=== PATIENT | male | born 1950 | race Hispanic/Latino ===

== ENCOUNTER → 2017-09-15 | Outpatient (CLI) | payer MEDICARE ==
[2017-09-15 08:37] LABS: CREATININE, SERUM 1.78 mg/dL (0.72-1.25)
== END ==
LOC: CT 07:34
DX: I70.203 Unspecified atherosclerosis of native arteries of extremities, bilateral legs (principal)
CPT/HCPCS: 36415; 82565; 84520

== ENCOUNTER → 2018-06-23 | Day surgery (SDC) | payer MEDICARE ==
[2018-06-22 12:48] LABS: BASOPHILS % 0.4 % (0.0-1.0); EOSINOPHILS # (AUTO) 0.2 (0.0-0.4); EOSINOPHILS % 2.2 % (0.0-6.0); HEMATOCRIT 38.2 % (38.2-49.6); HEMOGLOBIN 13.1 g/dL (14.0-18.0); LYMPHOCYTES # (AUTO) 1.7 (1.0-3.2); LYMPHOCYTES % 17.6 % (18.0-39.1); MEAN CORPUSCULAR HEMOGLOBIN 32.6 pg (28-32); MEAN CORPUSCULAR HGB CONC 34.3 g/dL (31-35); MONOCYTES # (AUTO) 0.8 (0.2-0.8); MONOCYTES % 8.7 % (4.4-11.3); NEUTROPHILS # (AUTO) 6.6 (2.1-6.9); NEUTROPHILS % 70.7 % (38.7-80.0); PLATELET COUNT 142 x10e3/uL (140-360); RED BLOOD COUNT 4.02 x10e6/uL (4.3-5.7); RED CELL DISTRIBUTION WIDTH 12.6 % (11.7-14.4)
[2018-06-22 13:04] LABS: PROTHROMBIN TIME 14.1 seconds (11.9-14.5)
[2018-06-22 13:16] LABS: ALBUMIN/GLOBULIN RATIO 1.1 (0.8-2.0); ANION GAP 15.3 mmol/L (8-16); CALCIUM 9.9 mg/dL (8.4-10.2); CHOL/HDL RATIO 3.2 (3.9-4.7); CREATININE, SERUM 1.51 mg/dL (0.72-1.25); POTASSIUM 4.3 mmol/L (3.5-5.1)
[~2018-06-23] VITALS: Ht 170.2 cm; Wt 86.2 kg
[2018-06-23] VITALS (10 sets, daily range): BP systolic 140–179; BP diastolic 68–89
[~2018-06-23] MED LIST: ASPIR 8181 MG PO; CHLORTHALIDONE50 MG PO; CLOPIDOGREL75 MG PO; FENTANYL CITRATE/PF 100MCG/2 ML INJ ONE; HEPARIN SOD (PORCINE) 1000 UNIT/ML 30ML ONE; HEPARIN SOD/SOD CHLORIDE 2,000 ML ONE; HYZAAR 100-251 EACH PO; IOPAMIDOL 300MG/ML 100 ML INFUS..BTL IV ONE; LIDOCAINE HCL 2% LOCAL 20 ML VIAL ONE; METOPROLOL SUCC50 MG PO; MIDAZOLAM HCL 2 MG/2 ML VIAL ONE; NITROGLYCERIN/D5W 200 MCG/ML 250 ML ONE; ONE DAILY FOR1 EAC1 PO; PANTOPRAZOLE SO40 MG PO; PRAVASTATIN SOD20 MG PO; PROTAMINE SULFATE 10 MG/ML 5 ML VIAL ONE; SERTRALINE HCL100 MG PO; SODIUM CHLORIDE 0.9% 1000ML 1,000 ML ONE; TICAGRELOR 90 MG TABLET ONE; VERAPAMIL HCL 2.5 MG/ML 2 ML VIAL ONE
--- NOTE | 2018-06-24 14:18 | Operative Report ---
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 PROCEDURES PERFORMED 1. Abdominal aortogram with bilateral lower extremity angiograms. 2. Selective catheter placement from the right femoral artery to the left superficial femoral artery. 3. Additional 3rd-order catheter placement in the right femoral artery to the left anterior tibial artery. 4. Atherectomy and drug-coated balloon angioplasty of the left anterior tibial artery. 5. Atherectomy and drug-coated balloon angioplasty of the right anterior tibial artery. 6. Deployment of right groin VASCADE closure device. COMPLICATIONS: None. RECOMMENDATIONS: Medical therapy for moderate peripheral arterial disease in the right lower extremity. Access obtained to the right femoral artery. A 6-[place] sheath was placed. Abdominal aortogram demonstrated patent renal arteries, abdominal aorta, and proximal iliac on the left, 50% stenosis. Bilateral iliac stents had mild restenosis. Femoral vessels could not be seen. The catheter was then advanced from the right femoral artery, left superficial femoral artery, moderate PAD in both femoral popliteal systems was noted, 50% stenosis in for popliteal vessels were not well seen. The catheter was then advanced from the right femoral artery to the left anterior tibial artery, proximal right anterior tibial artery, 80% tubular stenosis, origin of the right posterior tibial artery had 80% stenosis and the right posterior tibial artery had 50% stenosis. A decision was made to intervene on the right anterior and posterior tibial arteries. The patient received intravenous heparin and oral Brilinta for anticoagulation. The sheath was exchanged to a 45 cm 6-[place] sheath advanced from the right femoral artery to left superficial femoral artery. The lesion in the anterior tibial artery was crossed using a glidewire which was exchanged to a ViperWire. Orbital atherectomy using a 1.25 mm [place] was performed. Visible thrombus necessitating secondary thrombectomy was needed. Balloon angioplasty with a 4 mm [place]on[place] balloon was performed. The wire was then advanced down the left posterior tibial arteries and similar atherectomy and drug-coated balloon angioplasty was performed with excellent end result, less than 10% residual stenosis in both the anterior and posterior tibial artery with 3 vessel runoff to the left foot. Right groin repaired using VASCADE closure device. Patient discharged home same day. Job#: [id number]
== END | disposition home or self-care (01) ==
LOC: CATH LAB 12:42
PROVIDERS: ATTEND Internal Medicine Interventional Cardiology
DX: I73.9 Peripheral vascular disease, unspecified (principal); I10 Essential (primary) hypertension; Z72.0 Tobacco use; Z86.73 Personal history of transient ischemic attack (TIA), and cerebral infarction without residual deficits; Z86.2 Personal history of diseases of the blood and blood-forming organs and certain disorders involving the immune mechanism; Z82.49 Family history of ischemic heart disease and other diseases of the circulatory system
CPT/HCPCS: 36415; 37229; 37233; 75716; 80053; 80061; 85025; 85610; C1724; C1725 ×3; C1760; C1769 ×2; C1887; J1644; J2001; J2250; J2720; J7030; Q9967; 37228; 37232

== ENCOUNTER 2024-10-19 22:49 | Inpatient (IN) | payer MEDICARE ==
[~2024-10-19] VITALS: Ht 170.2 cm; Wt 83.0 kg
[~2024-10-19 22:49] MED LIST changes: -FENTANYL CITRATE/PF 100MCG/2 ML INJ ONE; -HEPARIN SOD (PORCINE) 1000 UNIT/ML 30ML ONE; -HEPARIN SOD/SOD CHLORIDE 2,000 ML ONE; -IOPAMIDOL 300MG/ML 100 ML INFUS..BTL IV ONE; -LIDOCAINE HCL 2% LOCAL 20 ML VIAL ONE; -MIDAZOLAM HCL 2 MG/2 ML VIAL ONE; -NITROGLYCERIN/D5W 200 MCG/ML 250 ML ONE; -PROTAMINE SULFATE 10 MG/ML 5 ML VIAL ONE; -SODIUM CHLORIDE 0.9% 1000ML 1,000 ML ONE; -TICAGRELOR 90 MG TABLET ONE; -VERAPAMIL HCL 2.5 MG/ML 2 ML VIAL ONE
[2024-10-19 22:50] VITALS: TEMP 97.6
[2024-10-19 23:45] LABS: BASOPHILS # (AUTO) 0.1 (0.0-0.1); BASOPHILS % 0.5 % (0.0-1.0); EOSINOPHILS # (AUTO) 0.3 (0.0-0.4); EOSINOPHILS % 2.7 % (0.0-6.0); HEMATOCRIT 32.6 % (38.2-49.6); HEMOGLOBIN 9.5 g/dL (14.0-18.0); LYMPHOCYTES # (AUTO) 1.7 (1.0-3.2); LYMPHOCYTES % 15.6 % (18.0-39.1); MEAN CORPUSCULAR HEMOGLOBIN 29.8 pg (28-32); MEAN CORPUSCULAR HGB CONC 29.1 g/dL (31-35); MEAN CORPUSCULAR VOLUME 102.2 fL (81-99); MONOCYTES % 9.4 % (4.4-11.3); NEUTROPHILS # (AUTO) 7.6 (2.1-6.9); NEUTROPHILS % 71.2 % (38.7-80.0); PLATELET COUNT 161 x10e3/uL (140-360); RED BLOOD COUNT 3.19 x10e6/uL (4.3-5.7); RED CELL DISTRIBUTION WIDTH 15.5 % (11.7-14.4); WHITE BLOOD COUNT 10.72 x10e3/uL (4.8-10.8)
[2024-10-20] VITALS (9 sets, daily range): BP systolic 109–152; BP diastolic 44–53; PULSE 48–89; RESP 16–18; TEMP 97.5–98.2; O2SAT 95–100
[2024-10-20 00:01] LABS: ALBUMIN 3.6 g/dL (3.5-5.0); ANION GAP 17.5 mmol/L (8-16); BILIRUBIN,TOTAL 0.7 mg/dL (0.2-1.2); CALCIUM 9.8 mg/dL (8.4-10.2); POTASSIUM 4.5 mmol/L (3.5-5.1); TOTAL PROTEIN 7.2 g/dL (6.5-8.1)
[2024-10-20 00:08] LABS: TROPONIN I 0.21 ng/mL (0.0-0.40)
[2024-10-20 00:16] LABS: CORONAVIRUS COVID-19 AG NEGATIVE (NEGATIVE); INFLUENZA A AG NEGATIVE (NEGATIVE); INFLUENZA B AG NEGATIVE (NEGATIVE)
[2024-10-20] MEDS ORDERED: ONDANSETRON HCL INJ 2MG/ML 2ML 2 MG/ML VIAL IV PRN (01:15)
[2024-10-20] MEDS: SODIUM CHLORIDE 0.9% 1000ML 1,000 ML IV ONE (01:34)
[2024-10-20] MEDS: SODIUM CHLORIDE 0.9% 1000ML 1,000 ML IV SCH (04:47)
[2024-10-20 05:06] LABS: ANISOCYTOSIS MODERATE; HYPOCHROMASIA MODERATE; OVALOCYTES MODERATE; POLYCHROMASIA FEW
[2024-10-20 05:08] LABS: PLATELET MORPHOLOGY COMMENT FEW GIANT; RBC MORPHOLOGY COMMENT ABNORMAL; STOMATOCYTES SLIGHT
[2024-10-20 05:09] LABS: PLATELET ESTIMATE ADEQUATE; POIKILOCYTOSIS MODERATE
[2024-10-20 05:24] LABS: BILIRUBIN,URINE NEGATIVE (NEGATIVE); CLARITY,URINE CLEAR (CLEAR); COLOR,URINE YELLOW (YELLOW); GLUCOSE, URINE NEGATIVE (NEGATIVE); KETONES,URINE NEGATIVE (NEGATIVE); LEUKOCYTE ESTERASE ,URINE NEGATIVE (NEGATIVE); NITRITE,URINE NEGATIVE (NEGATIVE); PH,URINE 5.5 (5 - 7); PROTEIN,URINE DIPSTICK 1+ (NEGATIVE); URINE UROBILINOGEN 0.2 mg/dL (0.2 - 1)
[2024-10-20 05:26] LABS: WBC,URINE (MAN) 0-5 /HPF (0-5)
[2024-10-20 05:27] LABS: BACTERIA,URINE MANY /HPF; EPITHELIAL CELLS,URINE FEW /LPF; RBC,URINE 0-5 /HPF (0-5)
[2024-10-20 09:16] LABS: TROPONIN I 0.777 ng/mL (0-0.300)
[2024-10-20] MEDS ORDERED: ALBUTEROL/IPRATROPIUM 3 ML NEB NEB PRN (10:30)
[2024-10-20] MEDS ORDERED: METOPROLOL TARTRATE INJ 1 MG/ML VIAL IV PRN (10:30)
[2024-10-20] MEDS ORDERED: DOCUSATE SODIUM 100 MG CAP PO PRN (10:30)
[2024-10-20] MEDS ORDERED: ACETAMINOPHEN 325 MG TAB PO PRN (10:30)
[2024-10-20] MEDS ORDERED: SIMETHICONE 80 MG CHEW PO PRN (10:30)
[2024-10-20] MEDS ORDERED: MELATONIN 3 MG TAB PO PRN (10:30)
[2024-10-20 10:49] LABS: ANION GAP 16.8 mmol/L (8-16); CALCIUM 8.8 mg/dL (8.4-10.2); CREATININE, SERUM 3.97 mg/dL (0.72-1.25); POTASSIUM 3.8 mmol/L (3.5-5.1)
[2024-10-20 10:56] LABS: CHOL/HDL RATIO 2.8 (3.9-4.7)
[2024-10-20] MEDS: CLOPIDOGREL BISULFATE 75 MG TAB PO SCH (11:32)
[2024-10-20 12:07] LABS: AMPHETAMINES SCREEN,URINE NEGATIVE (NEGATIVE); BENZODIAZEPINES SCREEN,URINE NEGATIVE (NEGATIVE); CANNABINOIDS SCREEN,URINE NEGATIVE (NEGATIVE); COCAINE SCREEN,URINE NEGATIVE (NEGATIVE); METHADONE SCREEN, URINE NEGATIVE (NEGATIVE); OPIATES SCREEN,URINE NEGATIVE (NEGATIVE); PHENCYCLIDINE SCREEN,URINE NEGATIVE (NEGATIVE)
[2024-10-20] MEDS: SODIUM BICARBONATE 650 MG TAB PO SCH (17:02)
[2024-10-20 18:02] LABS: BASOPHILS % 0.5 % (0.0-1.0); EOSINOPHILS # (AUTO) 0.3 (0.0-0.4); EOSINOPHILS % 3.8 % (0.0-6.0); HEMATOCRIT 27.4 % (38.2-49.6); HEMOGLOBIN 8.1 g/dL (14.0-18.0); LYMPHOCYTES # (AUTO) 1.4 (1.0-3.2); LYMPHOCYTES % 18.3 % (18.0-39.1); MEAN CORPUSCULAR HGB CONC 29.6 g/dL (31-35); MEAN CORPUSCULAR VOLUME 101.5 fL (81-99); MONOCYTES # (AUTO) 0.7 (0.2-0.8); MONOCYTES % 8.4 % (4.4-11.3); NEUTROPHILS # (AUTO) 5.3 (2.1-6.9); NEUTROPHILS % 68.2 % (38.7-80.0); PLATELET COUNT 163 x10e3/uL (140-360); RED CELL DISTRIBUTION WIDTH 15.1 % (11.7-14.4); WHITE BLOOD COUNT 7.72 x10e3/uL (4.8-10.8)
[2024-10-20 18:37] LABS: TROPONIN I 0.527 ng/mL (0-0.300)
[2024-10-20] MEDS: SERTRALINE HCL 100 MG TAB PO SCH (20:58)
[2024-10-21] VITALS (10 sets, daily range): BP systolic 129–150; BP diastolic 50–55; PULSE 58–73; RESP 16–18; TEMP 97.5–98.8; O2SAT 93–98
[2024-10-21 05:23] LABS: BASOPHILS % 0.4 % (0.0-1.0); EOSINOPHILS # (AUTO) 0.2 (0.0-0.4); EOSINOPHILS % 3.4 % (0.0-6.0); HEMATOCRIT 23.3 % (38.2-49.6); LYMPHOCYTES # (AUTO) 1.4 (1.0-3.2); LYMPHOCYTES % 19.3 % (18.0-39.1); MEAN CORPUSCULAR HEMOGLOBIN 29.7 pg (28-32); MEAN CORPUSCULAR HGB CONC 29.6 g/dL (31-35); MEAN CORPUSCULAR VOLUME 100.4 fL (81-99); MONOCYTES # (AUTO) 0.7 (0.2-0.8); MONOCYTES % 9.9 % (4.4-11.3); NEUTROPHILS # (AUTO) 4.7 (2.1-6.9); PLATELET COUNT 160 x10e3/uL (140-360); RED BLOOD COUNT 2.32 x10e6/uL (4.3-5.7); RED CELL DISTRIBUTION WIDTH 15.2 % (11.7-14.4); WHITE BLOOD COUNT 7.15 x10e3/uL (4.8-10.8)
[2024-10-21 05:46] LABS: ALBUMIN 2.6 g/dL (3.5-5.0); ANION GAP 12.8 mmol/L (8-16); BILIRUBIN,TOTAL 0.2 mg/dL (0.2-1.2); CALCIUM 8.3 mg/dL (8.4-10.2); CREATININE, SERUM 2.56 mg/dL (0.72-1.25); POTASSIUM 3.8 mmol/L (3.5-5.1)
[2024-10-21 05:47] LABS: TOTAL PROTEIN 5.2 g/dL (6.5-8.1)
[2024-10-21 05:53] LABS: HEMOGLOBIN 6.9 g/dL (14.0-18.0)
[2024-10-21] MEDS: SODIUM CHLORIDE 0.9% 250ML 250 ML IV ONE (10:12)
[2024-10-21] MEDS: PANTOPRAZOLE SOD 40 MG TABEC PO SCH (10:17)
[2024-10-21] MEDS ORDERED: SODIUM CHLORIDE IV SCH (11:30)
[2024-10-21] MEDS ORDERED: SODIUM BICARBONATE IV SCH (11:30)
[2024-10-21] MEDS ORDERED: SODIUM BICARBONATE 8.4% VIAL 50 ML in SODIUM CHLORIDE 0.45% 1,000 ML IV SCH (12:00)
[2024-10-21] MEDS: SODIUM BICARBONATE 8.4% VIAL 50 ML in SODIUM CHLORIDE 0.45% 1,000 ML IV SCH (17:28)
[2024-10-22] VITALS (8 sets, daily range): BP systolic 149–167; BP diastolic 56–63; PULSE 58–66; RESP 18–20; TEMP 98.3–99; O2SAT 94–100
[2024-10-22 08:13] LABS: BASOPHILS % 0.3 % (0.0-1.0); EOSINOPHILS # (AUTO) 0.3 (0.0-0.4); EOSINOPHILS % 4.1 % (0.0-6.0); HEMATOCRIT 28.5 % (38.2-49.6); HEMOGLOBIN 8.6 g/dL (14.0-18.0); LYMPHOCYTES # (AUTO) 1.4 (1.0-3.2); LYMPHOCYTES % 19.9 % (18.0-39.1); MEAN CORPUSCULAR HGB CONC 30.2 g/dL (31-35); MEAN CORPUSCULAR VOLUME 99.3 fL (81-99); MONOCYTES # (AUTO) 0.7 (0.2-0.8); MONOCYTES % 10.9 % (4.4-11.3); NEUTROPHILS # (AUTO) 4.4 (2.1-6.9); NEUTROPHILS % 63.8 % (38.7-80.0); PLATELET COUNT 152 x10e3/uL (140-360); RED BLOOD COUNT 2.87 x10e6/uL (4.3-5.7); RED CELL DISTRIBUTION WIDTH 15.2 % (11.7-14.4); WHITE BLOOD COUNT 6.82 x10e3/uL (4.8-10.8)
[2024-10-22 08:29] LABS: ANION GAP 12.9 mmol/L (8-16); CALCIUM 8.5 mg/dL (8.4-10.2); CREATININE, SERUM 1.82 mg/dL (0.72-1.25); POTASSIUM 3.9 mmol/L (3.5-5.1)
[2024-10-22 08:50] LABS: FERRITIN 49.79 ng/mL (21.81-274.66)
[2024-10-23] VITALS (9 sets, daily range): BP systolic 142–177; BP diastolic 60–73; PULSE 62–74; RESP 18–22; TEMP 97.6–98.6; O2SAT 98–100
[2024-10-23 05:08] LABS: BASOPHILS % 0.6 % (0.0-1.0); EOSINOPHILS # (AUTO) 0.3 (0.0-0.4); EOSINOPHILS % 4.1 % (0.0-6.0); HEMATOCRIT 26.5 % (38.2-49.6); HEMOGLOBIN 8.6 g/dL (14.0-18.0); LYMPHOCYTES # (AUTO) 1.1 (1.0-3.2); LYMPHOCYTES % 14.9 % (18.0-39.1); MEAN CORPUSCULAR HEMOGLOBIN 30.4 pg (28-32); MEAN CORPUSCULAR HGB CONC 32.5 g/dL (31-35); MEAN CORPUSCULAR VOLUME 93.6 fL (81-99); MONOCYTES # (AUTO) 0.9 (0.2-0.8); NEUTROPHILS # (AUTO) 4.8 (2.1-6.9); NEUTROPHILS % 67.6 % (38.7-80.0); PLATELET COUNT 156 x10e3/uL (140-360); RED BLOOD COUNT 2.83 x10e6/uL (4.3-5.7); RED CELL DISTRIBUTION WIDTH 14.9 % (11.7-14.4); WHITE BLOOD COUNT 7.16 x10e3/uL (4.8-10.8)
[2024-10-23] MEDS: HYDRALAZINE HCL 25 MG TAB PO SCH (11:58)
[2024-10-24] VITALS (8 sets, daily range): BP systolic 160–168; BP diastolic 58–65; PULSE 55–73; RESP 14–20; TEMP 97.2–99; O2SAT 95–100
[2024-10-24] MEDS ORDERED: SODIUM BICARBONATE 8.4% SYRING 50 ML ONE ×2 (00:17→22:39)
[2024-10-24] MEDS ORDERED: SODIUM CHLORIDE 0.45% 1,000 ML ONE ×2 (00:20→22:40)
[2024-10-24 06:06] LABS: CALCIUM 8.8 mg/dL (8.4-10.2); CREATININE, SERUM 1.5 mg/dL (0.72-1.25)
[2024-10-24] MEDS: METOPROLOL TARTRATE 25 MG TAB PO SCH (09:08)
[2024-10-24] MEDS: HYDRALAZINE HCL 25 MG TAB PO SCH (13:06)
[2024-10-24 14:55] LABS: ANION GAP 13.2 mmol/L (8-16); CALCIUM 8.8 mg/dL (8.4-10.2); CREATININE, SERUM 1.56 mg/dL (0.72-1.25); POTASSIUM 4.2 mmol/L (3.5-5.1)
[2024-10-24] MEDS ORDERED: SODIUM BICARBO650 MG PO (17:20)
[2024-10-24] MEDS ORDERED: HYDRALAZINE HCL25 MG PO (17:20)
[2024-10-24] MEDS ORDERED: CEPHALEXIN500 MG PO (17:23)
[2024-10-25] VITALS: BP 151/86; PULSE 64; RESP 16; TEMP 97.9; O2SAT 99
[2024-10-25 05:55] VITALS: BP 168/51; PULSE 61; RESP 18; TEMP 98.2; O2SAT 99
[2024-10-25 07:59] VITALS: PULSE 63; RESP 18; O2SAT 93
[2024-10-25 08:43] VITALS: BP_SYST 158; BP_SYST 168; BP_DIAS 51; BP_DIAS 58; PULSE 63; PULSE 64; RESP 18; RESP 19; TEMP 98.2; TEMP 98.3; O2SAT 93; O2SAT 98
[2024-10-25 09:12] VITALS: BP 158/58; PULSE 64
[2024-10-25] MEDS: HYDRALAZINE HCL 100 MG TABLET PO SCH (09:12)
[2024-10-25] MEDS ORDERED: HYDRALAZINE HCL 100 MG TABLET PO SCH (14:00)
== END 2024-10-25 10:32 | disposition home or self-care (01) | DRG 682 ==
LOC: ER 22:58 → ERHOLD 10-20 01:21 → MED/SURG 10-20 03:07
PROVIDERS: ADMIT Internal Medicine; ATTEND Internal Medicine
PROC: 30233N1 Transfusion of Nonautologous Red Blood Cells into Peripheral Vein, Percutaneous Approach (ICD-10-PCS; principal; 2024-10-21)
DX: N17.9 Acute kidney failure, unspecified (principal); I21.A1 Myocardial infarction type 2; E87.20 Acidosis, unspecified; M62.82 Rhabdomyolysis; N39.0 Urinary tract infection, site not specified; I12.9 Hypertensive chronic kidney disease with stage 1 through stage 4 chronic kidney disease, or unspecified chronic kidney disease; F10.20 Alcohol dependence, uncomplicated; N18.30 Chronic kidney disease, stage 3 unspecified; D63.1 Anemia in chronic kidney disease; I73.9 Peripheral vascular disease, unspecified; R00.1 Bradycardia, unspecified; S80.211A Abrasion, right knee, initial encounter; S80.212A Abrasion, left knee, initial encounter; W18.30XA Fall on same level, unspecified, initial encounter; Z11.52 Encounter for screening for COVID-19; Y92.012 Bathroom of single-family (private) house as the place of occurrence of the external cause; Z79.02 Long term (current) use of antithrombotics/antiplatelets; Z79.82 Long term (current) use of aspirin; Z86.73 Personal history of transient ischemic attack (TIA), and cerebral infarction without residual deficits; Z88.5 Allergy status to narcotic agent; F17.210 Nicotine dependence, cigarettes, uncomplicated
CPT/HCPCS: 36415; 70450; 71045; 72125; 76770; 80048; 80053; 80061; 80307; 80320; 81001; 82550; 82607; 82728; 83540; 84466; 84484; 85025; 86850; 86900; 86920; 93005; 93306; 94799; 99284; J0696; J7030; J7050; P9016